=== PATIENT | female | born 1980 | race African-American/Black ===

== ENCOUNTER 2018-03-02 11:26 | Emergency (ER) | payer MEDICAID, OTHER ==
[~2018-03-02] VITALS: Ht 165.1 cm; Wt 77.0 kg
[2018-03-02 14:38] VITALS: BP 135/78
== END 2018-03-02 16:05 | disposition left against medical advice (07) ==
LOC: ER 11:26
DX: R05 Cough (principal); R06.02 Shortness of breath; Z53.21 Procedure and treatment not carried out due to patient leaving prior to being seen by health care provider